=== PATIENT | female | born 1975 | race African-American/Black ===

== ENCOUNTER → 2016-12-24 | Outpatient (CLI) | payer MEDICAID ==
[~2016-12-24] MED LIST: DICY1TAB26 PO; HYDR-3580 PO; ZOFR4TAB3 SL
--- NOTE | 2016-12-24 14:40 | RADRPT ---
EXAM DATE/TIME: 12/24/2016 14:26 [place] COMPARISON: No previous studies available for comparison. INDICATIONS : Hypertension. MEDICAL HISTORY : Hypertension. SURGICAL HISTORY : section. Cervical mass removed. ENCOUNTER: Initial ACUITY: 1 day PAIN SCORE: 0/10 LOCATION: chest FINDINGS: PA and lateral views of the chest demonstrate cardiac silhouette size at the upper limits for normal. No effusion, consolidation, or pneumothorax is identified. Bones and soft tissues demonstrate no abn ormality. CONCLUSION: Cardiac silhouette size is at the upper limits for normal. Otherwise, no acute cardiopulmonary abnorm ality is identified. Morgan Ga MD on December 24, 2016 at 14:37 Board Certified Radiologist. This report was verified electronically.
--- NOTE | 2016-12-25 17:27 | EKG ---
Date Performed: 12/24/2016 Time Performed: 14:04:30 PTAGE: 41 years EKG: Sinus rhythm POSSIBLE LEFT ATRIAL ENLARGEMENT NONSPECIFIC T-WAVE ABNORMALITY BORDERLINE ECG NO PREVIOUS TRACING DOCTOR: Sea Springer Interpretating Date/Time 12/25/2016 17:25:22
== END ==
LOC: HCAV 13:37
DX: I10 Essential (primary) hypertension (principal); R94.31 Abnormal electrocardiogram [ECG] [EKG]
CPT/HCPCS: 71020; 93005